=== PATIENT | male | born 1995 | race Caucasian/White ===

== ENCOUNTER 2020-05-17 15:39 | Emergency (ER) | payer OTHER, SELFPAY ==
--- NOTE | ~2020-05-17 | CT_ITS ---
EXAMINATION: CT ABDOMEN AND PELVIS WITHOUT CONTRAST CLINICAL INFORMATION: Left flank pain? Stone . COMPARISON: No pertinent prior studies are available for comparison. TECHNIQUE: Multidetector volumetric imaging was performed from the superior aspect of the liver through the pubic symphysis without contrast per renal stone protocol. Sagittal and coronal reformatted images were obtained on the technologist workstation. This CT examination was performed using dose optimization techniques as appropriate, variously including the following: *Automated exposure control *Adjustment of mA and/or kV according to patient size (this includes techniques or standardized protocols for targeted exams where dose is matched to indication/reason for exam; i.e. extremities or head) *Use of iterative reconstruction technique DLP: 461 mGy-cm. FINDINGS: LUNG BASES: The visualized lung bases are unremarkable. LIVER, GALLBLADDER, BILIARY TREE: The non-contrast liver is normal in size, shape, and attenuation. No focal hepatic lesion or biliary ductal dilatation is present. The gallbladder is unremarkable with no evidence of radiopaque gallstones, gallbladder wall thickening, or obvious pericholecystic inflammatory changes. PANCREAS: Unremarkable. SPLEEN: Unremarkable. ADRENAL GLANDS: Unremarkable. KIDNEYS AND URETERS: Mild left-sided hydronephrosis extending up to a 3 mm calculi at the left ureteropelvic junction. There were 2 additional 2 mm and 3 mm nonobstructing calculi in the lower pole collecting system of the left kidney. Contralateral right kidney is unremarkable. BLADDER: Decompressed but otherwise unremarkable GASTROINTESTINAL TRACT: Mostly decompressed but unremarkable. Normal-appearing appendix in the right lower quadrant. ABDOMINAL WALL: No significant hernia is appreciated. LYMPHOVASCULAR STRUCTURES: No lymphadenopathy. The aorta is unremarkable.. PELVIC VISCERA: Unremarkable. OSSEUS STRUCTURES: Unremarkable. CT/CT abdomen pelvis wo con IMPRESSION: Mild obstructive changes to the left kidney extending up to 3 mm calculi at the left ureteral pelvic junction with 2 additional smaller intrarenal calculi on the left.
[2020-05-17 18:11] VITALS: BP 151/97; PULSE 103; RESP 16; TEMP 37.2; O2SAT 99; BMI 22.5
--- NOTE | 2020-05-17 18:14 | ED_ITS ---
HPI - Abdominal Pain General Chief Complaint: Urogenital-Male Stated Complaint: kidney stones? Time Seen by Provider: 05/17/20 18:13 Source: patient Mode of arrival: ambulatory Limitations: no limitations History of Present Illness HPI narrative: Patient with no known significant past medical history notice gradual onset left flank pain about 1 week ago since then having pain off and on no relation to question or lesion to breathing no cough also noticed slight amount of blood MD elicited complaint: flank pain Onset (ago): week(s) (1) Location: L flank Severity: mild Quality: sharp Radiation: none Migration to: no migration Exacerbating factors: nothing Relieving factors: nothing Associated symptoms: hematuria Related Data Previous Rx's Medication Instructions Recorded ibuprofen 600 mg PO Q6H PRN #20 tab 05/17/20 tamsulosin [Flomax] 0.4 mg PO BEDTIME #10 cap 05/17/20 Allergies Allergy/AdvReac Type Severity Reaction Status Date / Time No Known Allergies Allergy Verified 05/17/20 18:18 Review of Systems Review of Systems Constitutional : No Weight loss, No Fever, No Chills ENT/Mouth : No sore throat, No Rhinorrhea Eyes: No Eye Pain, No Swelling Cardiovascular : No Chest Pain, no palpitations Respiratory : No Cough, No Sputum, no shortness of breath Gastrointestinal : no Nausea, No Vomiting, No Diarrhea, No abdominal Pain, no black stools Genitourinary : No Dysuria, No Urinary Frequency Musculoskeletal : No joint pain, No Myalgias, No Joint Swelling Skin : No Skin Lesions, No rash Neuro : No Weakness, No Numbness, No Dizziness, No Headache Psych : No Anxiety/Panic, No Depression Heme/Lymph: No Bruising, No Lymphadenopathy Endocrine : No Polyuria, No Polydipsia All other systems reviewed and are negative Physical Exam Vital Signs: Vital Signs: Last Vital Signs Temp 98.9 F 05/17/20 18:11 Pulse 103 H 05/17/20 18:11 Resp 16 05/17/20 18:11 BP 151/97 H 05/17/20 18:11 Pulse Ox 99 05/17/20 18:11 Body Mass Index 22.5 Appearance: Alert. Oriented X3. No acute distress. Eyes: Pupils equal, round and reactive to light. ENT: Pharynx normal. Neck: Normal inspection. Neck supple. CVS: Normal heart rate and rhythm. Pulses normal. Respiratory: No respiratory distress. Breath sounds normal. Abdomen: Soft and nontender. Bowel sounds are present, no mass palpable, left CVA tenderness+ Skin: Skin warm and dry. Normal skin color. Normal skin turgor. Extremities: No lower extremity edema. Neuro: Oriented X 3. No motor deficit. No sensory deficit. Course Course Course Narrative: Patient without any significant pain CT scan showed 3 mm proximal stone will discharge him home on Flomax and ibuprofen advised to follow-up with urologist MDM - Abdominal Pain Differential Diagnosis Differential diagnosis: Likely calculus of kidney Lab Data Attestation: I reviewed the patient's lab results. Labs: Lab Results 05/17/20 Range/Units 18:37 Urine Color YELLOW Urine Appearance CLEAR Urine pH 6.0 (5.0-8.0) Ur Specific [place] 1.010 (1.005-1.025) Urine Protein NEG (NEG-TRACE) MG/DL Urine Glucose (UA) NEG (NEG) MG/DL Urine Ketones NEG (NEG) MG/DL Urine Blood 3+ H (NEG) Urine Nitrite NEG (NEG) Ur Leukocyte Esterase NEG (NEG) Urine RBC 15-29 H (0) /HPF Urine WBC 0 (0-4) /HPF Ur Squamous Epith Cells TRACE /LPF Urine Bacteria 1+ /LPF Discharge Plan Discharge Clinical Impression: Kidney calculi Patient Disposition: Home, Self-Care Instructions: Kidney Stones (ED) Additional Instructions: Drink plenty of fluids take medication as prescribed Follow-up with urologist as needed Prescriptions: New tamsulosin [Flomax] 0.4 mg capsule 0.4 mg PO BEDTIME Qty: 10 RF: 0 ibuprofen 600 mg tablet 600 mg PO Q6H PRN (Reason: pain) Qty: 20 RF: 0 Referrals: Jad Winston III, MD [Physician] - 3 days Interventions: ED Discharge Assessment Last Done: 05/17/20 19:51 Discharge Date/Time: 05/17/20 19:53 [facility] Past Medical History Medical History No known health problems Social History Social History Smoked in Last 30 Days: No Use of substances other than those prescribed or required for medical reasons: No Advance Directives: No Advance Directives Information Provided: No
[2020-05-17 18:44] LABS: Appearance Urine CLEAR; Color Urine YELLOW; Glucose Urine UA NEG (NEG); Leukocyte Esterase Urine NEG (NEG); Nitrite Urine NEG (NEG); Urine Blood 3+ (NEG); Urine Ketones NEG (NEG); Urine Protein NEG (NEG-TRACE)
[2020-05-17 18:49] LABS: Bacteria Urine 1+ /LPF; Squamous Epithelial Cell Urine TRACE /LPF; WBC Urine 0 /HPF (0-4)
== END 2020-05-17 19:53 | disposition home or self-care (01) ==
PROVIDERS: Emergency Provider Internal Medicine
DX: N20.0 Calculus of kidney (principal); R10.9 Unspecified abdominal pain; Z79.899 Other long term (current) drug therapy
CPT/HCPCS: 74176; 81001; 99284

== ENCOUNTER → 2020-06-05 13:28 | Outpatient (BNVA) | payer OTHER, SELFPAY | PROVIDERS: Visit Provider Urology ==

== ENCOUNTER 2020-06-07 15:31 | Outpatient (REF) | payer OTHER, SELFPAY ==
--- NOTE | ~2020-06-07 | US_ITS ---
EXAMINATION: US RETROPERITONEAL LIMITED (RENAL ONLY) CLINICAL INFORMATION: Calculus of kidney. COMPARISON: CT abdomen and pelvis 05/17/2020 TECHNIQUE: Real-time imaging of the kidneys. FINDINGS: RIGHT KIDNEY: 11.8 x 4.6 x 6.4 cm (SAG x AP x TRV). The kidney is normal in size, contour, and echogenicity. Renal cortical thickness is normal. No calculi or focal parenchymal lesions. No hydronephrosis. LEFT KIDNEY: 11.2 x 4.7 x 5.0 cm (SAG x AP x TRV). The kidney is normal in size, contour, and echogenicity. Renal cortical thickness is normal. No focal parenchymal lesions or hydronephrosis. Lower pole 6 x 6 x 5 mm nonobstructing calculus. This could represent clustered calculi situated next to each other in the lower pole, as seen on the prior CT scan. US/US renal BI IMPRESSION: Left renal lower pole 6 x 6 x 5 mm nonobstructing calculus versus 2 clustered calculi, as seen on the recent CT scan.
== END 2020-06-07 15:32 | disposition home or self-care (01) ==
LOC: HO.HMGCX 15:31
PROVIDERS: Visit Provider Urology
DX: N20.0 Calculus of kidney (principal)
CPT/HCPCS: 76775

== ENCOUNTER → 2020-07-06 15:10 | Outpatient (BNVA) | payer OTHER, SELFPAY | PROVIDERS: Visit Provider Urology ==

== ENCOUNTER 2020-07-30 10:05 | Outpatient (REF) | payer OTHER, SELFPAY ==
[2020-07-30 11:25] LABS: MANUAL DIFF FLAG NO
[2020-07-30 11:36] LABS: Basophils Absolute Auto 0.1 X10*3/uL (0.0-0.2); Basophils Percent Auto 0.8 % (0-2); Eosinophils Absolute Auto 0.2 X10*3/uL (0.0-0.4); Eosinophils Percent Auto 2.3 % (0-4); Hematocrit 50.3 % (42-52); Hemoglobin 16.7 g/dl (14.0-18.0); Imm Gran Abs Auto 0.01 X10*3/uL (0.00-0.03); Imm Gran Pct Auto 0.2 % (0.0-0.4); Lymphocytes Absolute Auto 2.2 X10*3/uL (1.2-4.9); Lymphocytes Percent Auto 34.4 % (20-40); Mean Corpuscular HGB Conc 33.2 g/dl (31.0-36.0); Mean Corpuscular Hemoglobin 30.4 pg (27.0-33.0); Mean Corpuscular Volume 91.6 fL (80-98); Mean Platelet Volume 9.6 fL (9.4-12.4); Monocytes Absolute Auto 0.6 X10*3/uL (0.1-1.2); Monocytes Percent Auto 9.4 % (2-11); Neutrophils Absolute Auto 3.4 X10*3/uL (2.0-8.3); Neutrophils Percent Auto 52.9 % (45-73); Platelet Count 271 X10*3/uL (160-400); Red Blood Count 5.49 X10*6/uL (4.60-5.80); Red Cell Distribution Width 11.7 % (11.0-16.0); White Blood Count 6.5 X10*3/uL (4.8-10.8)
[2020-07-30 12:14] LABS: Alanine Aminotransferase 26 U/L (0-40); Alkaline Phosphatase 75 U/L (39-117); Anion Gap 15 (12-20); Aspartate Amino Transferase 16 U/L (5-37); Bilirubin Total 1.4 mg/dL (0.0-1.0); Blood Urea Nitrogen 13 mg/dL (9-16); Calcium 10.3 mg/dL (8.4-10.2); Carbon Dioxide 29 mmol/L (22-29); Chloride 101 mmol/L (96-108); Cholesterol 206 mg/dL; Estimated Glomerular Filt Rate > 60; Glucose Fasting 93 mg/dL (60-99); HDL Cholesterol 54 mg/dL; LDL Cholesterol Calculated 126 mg/dl; Potassium 4.2 mmol/L (3.3-5.1); Sodium 141 mmol/L (135-145); Total Protein 7.8 g/dL (6.5-8.0); Triglycerides 134 mg/dL
== END 2020-07-30 10:06 | disposition home or self-care (01) ==
LOC: HO.HMGCLDS 10:05
PROVIDERS: PCP Internal Medicine Medical Oncology; Visit Provider Internal Medicine Medical Oncology
DX: Z00.00 Encounter for general adult medical examination without abnormal findings (principal)
CPT/HCPCS: 36415; 80053; 80061; 85025

== ENCOUNTER 2025-02-21 15:23 | Outpatient (REF) | payer MEDICAID, SELFPAY ==
--- OUTSIDE RECORDS SUMMARY | 2023-11-03 10:00 | XMS_ITS ---
Author Organization Des Pichardo III, MD Address [address] [place] [address] Care Team Providers Care Substation Designer Name Role Phone Dr. Des Pichardo III Primary Care Provider [phone] Allergies Allergen (clinical drug ingredient) Drug/Non Drug Allergy documented on EMR Reaction Allergy Type Onset Date Status Seasonale Unknown Drug Allergy Active REASON FOR VISIT annual exam Social History Tobacco Use: Social History Observation Description Date Details (start date - stop date) Never Smoker NA - NA Sex Assigned At : Social History Observation Description Sex Assigned At Male Tobacco Use/Smoking Question Answer Notes Patient is a nonsmoker Additional Findings: Tobacco Non-User Aggressive non-smoker Alcohol Screen Question Answer Notes Did you have a drink contain ing alcohol in the past year? Yes How often did you have a dri nk containing alcohol in the past year? 2 to 4 times a month (2 points) How many drinks did you have on a typical day when you were drinking in the past year? 1 or 2 drinks (0 point) How often did you have 6 or more drinks on one occasion in the past year? Never (0 point) Points 2 Interpretation Negative Vital Signs Temperature 101.3 degrees Fahrenheit 024 Blood pressure systolic 154 mm Hg 11/03/19 24 Blood pressure diastolic 81 mm Hg 024 Heart Rate 92 /min 11/03/2023 Height 75 in 11/03/2023 Weight 184 lbs 11/03/2023 BMI 23 kg/m2 11/03/2023 Encounters Encounter Location Date Provider Diagnosis Des Pichardo III, MD [address] [place] [address] [place] [address] 11/03/2023 Des Pichardo Asperger syndrome F8 4.5 ; Social anxiety disorder F40.10 ; Tinnitus of both ears H93.13 ; Ureterolithiasis N20.1 and Generalized anxiety disorder F41.1 Assessments Encounter Date Diagnosis (ICD Code) Assessment Notes Treat ment Notes Treatment Clinical Notes 11/03/2023 Asperger syndrome (ICD-10 - F84.5) He is stable at this time no treatment is needed. Old records have been requested. 11/03/2023 Social anxiety disor kenna (ICD-10 - F40.10) He will continue on current therapy. 11/03/2023 Tinnitus of both ear s (ICD-10 - H93.13) History tinnitus is unchanged. It is present in both ears and his hearing is intact. 11/03/2023 Ureterolithiasis (ICD-10 - N20.1) There is no sign of renal colic today. 11/03/2023 Generalized anxiety disorder (ICD-10 - F41.1) He has elected to stop the fluoxetine. He will be followed carefully. He says he is eating 3 meals a day and his weight is stable. Plan Of Treatment Next Appt Details Follow Up: 1 Year, Reason: O V, Annual Exam Provider Name:Des Pichardo , 03/07/2025 03:15:00 PM, [address] [place] [address] [address], [place], [address], Provider Name:Des Pichardo , 11/07/2025 03:00:00 PM, [address] [place] [address] [address], [place], [address], Progress Notes * INDRA ClaudeJohnnyOB:[birth year] (28 yo M)Acc No.[id number]:11/03/2023 Progress Notes Patient: Edmar Paris Provider: Zach Pichardo MD :1995 A ge:28 Y S ex:Male Date:11/03/2023 [facility] [address] [phone] Subjective: * Chief Complaints: * A nnual exam * HPI: D epression Screening: He returns to the office at the age of 28, for his annual physical examination. Since his last visit he has become an uncle. He has had no kidney stones. He continues to have tinnitus intermittently. His anxiety is mild at this time. He is able to conduct all of the activities of daily life without impairment. No new problems were found on today's examination. PHQ-9 L ittle interest or pleasure in doing things?Not at all F eeling down, depressed, or hopeless N ot at all T rouble falling or staying asleep, or sleeping too much N ot at all F eeling tired or having little energy N ot at all P oor appetite or overeating N ot at all F eeling bad about yourself or that you are a failure, or have let yourself or your family down N ot at all T rouble concentrating on things, such as reading the newspaper or watching television N ot at all M oving or speaking so slowly that other people could have noticed; or the opposite, being so fidgety or restless that you have been moving around a lot more than usual N ot at all T houghts that you would be better off or of hurting yourself in some way N ot at all T otal Score 0 C OVID-19 Screening: Questions H ave you experienced fever, chills, cough, sore throat, shortness of breath, difficulty breathing, muscle aches, loss of taste or smell? N o H ave you been exposed to the virus within the last 10 days? N o H ave you travelled internationally in the last 10 days? N o H ave you been exposed to COVID-19 in the past? N o S RAEGAN Questions: SDOH Questions I n the past year have you been worried about losing your housing? N o I n the past year have you or any family members you live with been unable to get any of the following when it was really needed? Check all that apply: N one * ROS: G eneral/Constitutional: pain o nly normal aches and pains. C hills d enies.?Fatigue a dmits. F ever d enies. E NT: Decreased hearing d enies. R espiratory: Cough d enies. C ardiovascular: Chest pain with exertion d enies. D yspnea on exertion?denies. S hortness of breath d enies. G astrointestinal: Constipation o ccasional. D ecreased appetite d enies. D iarrhea d enies. H eartburn d enies. N ausea d enies. R ectal bleeding d enies. V omiting d enies. H ematology: bruising d enies. p etechiae d enies. S wollen glands n one have been noted. G enitourinary: Frequent urination d enies. M usculoskeletal: Muscle aches d enies. P ainful joints d enies. S ciatica d enies. W eakness d enies. S kin: Itching d enies. R kenyatta d enies. S kin lesion(s)?denies. N eurologic: Difficulty speaking d enies. D izziness d enies.?Headache d enies. L ow back pain d enies. P sychiatric: Depressed mood w hich is mild. * Medical History: * Surgical History: d ental extractions 2016hydrocele surgery age 7 months 1995 * Hospitalization/Major Diagno stic Procedure: D enies Past Hospitalization * Family History: F ather: alive 57 yrs, Chronic pain after an accident. M other: alive 55 yrs, Hyperthyroidism. 1 sister(s) - healthy. . His mother suffers from thyroiditis but is otherwise healthy. His father has chronic pain after an accident. His 28-year-old sister, Katty, is healthy and well. He is not aware of any inherited cancer family syndrome. * Social History: T obacco Use: T obacco Use/Smoking P atient is a n onsmoker A dditional Findings: Tobacco Non-User A ggressive non-smoker D rugs/Alcohol: D rugs H ave you used drugs other than those for medical reasons in the past 12 months? N o Alcohol Screen D id you have a drink containing alcohol in the past year? Y es H ow often did you have a drink containing alcohol in the past year? 2 to 4 times a month (2 points) H ow many drinks did you have on a typical day when you were drinking in the past year? 1 or 2 drinks (0 point) H ow often did you have 6 or more drinks on one occasion in the past year? N ever (0 point) P oints 2 I nterpretation N egative H e was born in [facility]. He is a nonsmoker and unemployed. 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 He has no experience. He is not a Yarsani. * Medications: N one * Allergies: S easonaleno[Allergies Verified] Objective: * Vitals: H t: 75, Wt: 184, BMI:23, BP: 154/81, HR: 92, Temp: 101.3, Wt-k.46. * Examination: G eneral Examination: GENERAL APPEARANCE: p leasant, well nourished, well developed, in no acute distress, calm and relaxed , man. HEAD: a traumatic, normocephalic. EYES: e [place], perrla, anicteric, conjugate. EARS: n ormal. NOSE: s eptum intact. ORAL CAVITY: n ormal, unremarkable. NECK/THYROID: n o jugular venous distention, no carotid bruit, thyroid normal. LYMPH NODES: n o enlarged lymph nodes,spleen normal. SKIN: n o suspicious lesions, anicteric. HEART: n o clicks, gallops, murmurs, or rubs, regular rhythm, S1, S2 normal, no s3, or vascular bruits. LUNGS: c lear to auscultation . BREASTS: no masses palpable bilaterally. ABDOMEN: b owel sounds normal, no ascites, no organomegaly, no mass. RECTAL EXAM: n ot examined. MUSCULOSKELETAL: e xtremities unremarkable, no clubbing, cyanosis or edema. PERIPHERAL PULSES: n ormal. NEUROLOGIC: a lert and oriented, cranial nerves 2-12 grossly intact, deep tendon reflexes 2+ symmetrical, motor strength normal upper and lower extremities, sensory exam intact. PSYCH: a lert, oriented , anxious appearing. ? Assessment: * Assessment: 1. A sperger syndrome - F84.5 (Primary), He is stable at this time no treatment is needed. Old records have been requested. 2 . S ocial anxiety disorder - F40.10, He will continue on current therapy. 3 . T innitus of both ears - H93.13, History tinnitus is unchanged. It is present in both ears and his hearing is intact. 4 . U reterolithiasis - N20.1, There is no sign of renal colic today. 5 . G eneralized anxiety disorder - F41.1, He has elected to stop the fluoxetine. He will be followed carefully. He says he is eating 3 meals a day and his weight is stable. Plan: * Treatment: * Procedure Codes: * Follow Up: 1 Year (Reason: OV, Annual Exam) * Images: * Sign off status: Completed true * Provider: Zach Pichardo MD Date: 0 11/03/2023 Generated for Wilfredo godinez/Lauren/Renny on: 1 04/23/2024 05:02 PM EST History and Physical Notes * HPI (History of Present Illness) Category Sub-Category Detail Notes Depression Screening PHQ-9 Little inte rest or pleasure in doing things: Not at all Feeling down, depressed, or hopeless: No t at all Trouble falling or staying asleep, or sl eeping too much: Not at all Feeling tired or having little energy: N ot at all Poor appetite or overeating: Not at all Feeling bad about yourself o r that you are a failure, or have let yourself or your family down: Not at all Trouble concentrating on thi ngs, such as reading the newspaper or watching television: Not at all Moving or speaking so slowly that other people could have noticed; or the opposite, being so fidgety or restless that you have been moving around a lot more than usual: Not at all Thoughts that you would be b cindi off or of hurting yourself in some way: Not at all Total Score: 0 COVID-19 Screening Questions Have you had any new onset fever, chills, cough, congestion, sore throat, shortness of breath, muscle aches?: No Have you been exposed to the virus withi n the last 10 days?: No Have you travelled internationally in last 10 days?: No Have you been exposed to COVID-19 in the past?: No SDOH Questions SDOH Questions In the past year have you been worried about losing your housing?: No In the past year have you or any family members you live with been unable to get any of the following when it was really needed? Check all that apply:: None Examination Category Sub-Category Detail Notes General Examination GENERAL APPEARANCE: pleasant , well nourished, well developed, in no acute distress, calm and relaxed , man HEAD: atraumatic, normocep halic EYES: eomi, perrla, anicte jonatan, conjugate EARS: normal NOSE: septum intact NECK/THYROID: no jugular venous di stention, no carotid bruit, thyroid normal HEART: no clicks, gallops, murmurs, or rubs, regular rhythm, S1, S2 normal, no s3, or vascular bruits LUNGS: clear to auscultatio n ABDOMEN: bowel sounds normal, no ascites, no organomegaly, no mass NEUROLOGIC: alert and oriented, cranial nerves 2-12 grossly intact, deep tendon reflexes 2+ symmetrical, motor strength normal upper and lower extremities, sensory exam intact SKIN: no suspicious lesion s, anicteric PERIPHERAL PULSES: normal BREASTS: no masses palpable b ilaterally MUSCULOSKELETAL: extremities unremark able, no clubbing, cyanosis or edema LYMPH NODES: no enlarged lymph no tee,spleen normal RECTAL EXAM: not examined PSYCH: alert, oriented , an xious appearing ORAL CAVITY: normal, unremarkable
--- OUTSIDE RECORDS SUMMARY | 2024-11-04 10:00 | XMS_ITS ---
Author Organization Des Pichardo III, MD Address [address] [place] [address] Care Team Providers Care General Maintenance Helper Name Role Phone Dr. Des Pichardo III Primary Care Provider [phone] Allergies Allergen (clinical drug ingredient) Drug/Non Drug Allergy documented on EMR Reaction Allergy Type Onset Date Status No Known Food Allergy Unknown Drug Allergy Active Seasonale Unknown Drug Allergy Active REASON FOR VISIT annual exam Social History Tobacco Use: Social History Observation Description Date Details (start date - stop date) Never Smoker NA - NA Sex Assigned At : Social History Observation Description Sex Assigned At Male Tobacco Control (Standard) Question Answer Notes Tobacco use: Nonsmoker Additional Findings: Tobacco non-user Aggressive nonsmoker AUDIT-C (Standard) Question Answer Notes Did you have a drink contain ing alcohol in the past year? Yes How often did you have six o r more drinks on one occasion in the past year? 2 to 3 times per week (3 points) How many drinks did you have on a typical day when you were drinking in the past year? 1 or 2 drinks (0 point) How often did you have a dri nk containing alcohol in the past year? Never (0 point) Points 3 Interpretation Negative Vital Signs Temperature 98.8 degrees Fahrenheit 11/05/19 25 Blood pressure systolic 110 mm Hg 11/05/19 25 Blood pressure diastolic 64 mm Hg 025 Heart Rate 89 /min 11/04/2024 Height 75 in 11/04/2024 Weight 178 lbs 11/04/2024 BMI 22.25 kg/m2 11/04/2024 Encounters Encounter Location Date Provider Diagnosis Des Pichardo III, MD [address] [place] [address] [place] [address] 11/04/2024 Des Pichardo Asperger syndrome F8 4.5 ; Social anxiety disorder F40.10 ; Tinnitus of both ears H93.13 ; Ureterolithiasis N20.1 and Generalized anxiety disorder F41.1 Assessments Encounter Date Diagnosis (ICD Code) Assessment Notes Treat ment Notes Treatment Clinical Notes 11/04/2024 Asperger syndrome (ICD-10 - F84.5) He is stable at this time no treatment is needed. Old records have been requested. 11/04/2024 Social anxiety disor kenna (ICD-10 - F40.10) He will continue on current therapy. 11/04/2024 Tinnitus of both ear s (ICD-10 - H93.13) History tinnitus is unchanged. It is present in both ears and his hearing is intact. 11/04/2024 Ureterolithiasis (ICD-10 - N20.1) There is no sign of renal colic today. 11/04/2024 Generalized anxiety disorder (ICD-10 - F41.1) He has elected to stop the fluoxetine. He will be followed carefully. He says he is eating 3 meals a day and his weight is stable. Plan Of Treatment Pending Test Test Name Order Date PROFILE, FASTING (COMPREHENSIVE METABOLI C) 11/04/2024 CBC w DIFF 11/04/2024 Lipid Panel 11/04/2024 Next Appt Details Follow Up: 1 Year, Reason: A nnual Exam Provider Name:Des Pichardo , 03/07/2025 03:15:00 PM, [address] [place] [address] [address], [place], [address], Provider Name:Des Pichardo , 11/07/2025 03:00:00 PM, [address] [place] [address] [place], [address], Progress Notes * Alcides BURRELL:[birth year] (29 yo M)Acc No.[id number]:11/04/2024 Progress Notes Patient: Edmar FERNANDEZ Provider: Zach Pichardo MD :1995 A ge:29 Y S ex:Male Date:11/04/2024 Address: [address], [place], [id number] Subjective: * Chief Complaints: * A nnual exam * HPI: D epression Screening: He returns to the office at the age of 29 for his annual physical examination. He continues to have tinnitus but has had no kidney stones. He remains anxious in social situations but is functioning well. He is able to complete all of the activities of his daily life. He has no medical complaints today. He has been compliant with all of his treatments. PHQ-9 L ittle interest or pleasure in doing things?Not at all F eeling down, depressed, or hopeless N ot at all T rouble falling or staying asleep, or sleeping too much N ot at all F eeling tired or having little energy S everal days P oor appetite or overeating N ot [...] N ot at all T otal Score 1 I nterpretation M inimal Depression C OVID-19 Screening: Questions H ave you had any new onset fever, chills, cough, congestion, sore throat, shortness of breath, muscle aches? N o S RAEGAN Questions: SDOH Questions [...] ever d enies. E NT: Decreased hearing I ntermittent tinnitus. R espiratory: Cough d enies. C ardiovascular: Chest pain with exertion d enies. D yspnea on exertion?denies. S hortness of breath d enies. G astrointestinal: Constipation d enies. D ecreased appetite d enies.?Diarrhea d enies. H eartburn d enies. N ausea d enies. R ectal bleeding?denies. V omiting d enies. H ematology: bruising [...] pain d enies. P sychiatric: Depressed mood d enies. * Medical History: * Surgical History: d [...] aware of any inherited cancer family syndrome. A great uncle has bladder cancer. * Social History: T obacco Use: T obacco Control (Standard) T obacco use: N onsmoker A dditional Findings: Tobacco non-user A ggressive nonsmoker D rugs/Alcohol: D rugs H ave you used drugs other than those for medical reasons in the past 12 months? N o D rug/Alcohol: A ANA-C (Standard) D id you have a drink containing alcohol in the past year? Y es H ow often did you have six or more drinks on one occasion in the past year? 2 to 3 times per week (3 points) H ow many drinks did you have on a typical day when you were drinking in the past year? 1 or 2 drinks (0 point) H ow often did you have a drink containing alcohol in the past year? N ever (0 point) P oints 3 I nterpretation N egative H lavell was born in [facility] at [facility]. He is a nonsmoker and unemployed. 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 He has no experience. He is not a Yarsani. * Medications: N one * Allergies: S easonaleNo Known Food Allergyno[Allergies Verified] Objective: * Vitals: H t: 75, Wt: 178, BMI:22.25, BP: 110/64, HR: 89, Temp: 98.8, Wt-k.74. * Examination: G eneral Examination: GENERAL APPEARANCE: p leasant, well nourished, well developed, in no acute distress, calm and relaxed: man. HEAD: a traumatic, normocephalic. EYES: e [...] extremities, sensory exam intact. PSYCH: a lert, oriented: anxious appearing: speech clear: thought process logical, goal directed: mood/affect full range: good eye contact: cooperative with exam: cognitive function intact. Assessment: * Assessment: 1. A sperger syndrome - F84.5 (Primary) N otes :He is stable at this time no treatment is needed. Old records have been requested. 2 . S ocial anxiety disorder - F40.10 N otes :He will continue on current therapy. 3 . T innitus of both ears - H93.13 N otes :History tinnitus is unchanged. It is present in both ears and his hearing is intact. 4 . U reterolithiasis - N20.1 N otes :There is no sign of renal colic today. 5 . G eneralized anxiety disorder - F41.1 N otes :He has elected to stop the fluoxetine. He will be followed carefully. He says he is eating 3 meals a day and his weight is stable. Plan: * Treatment: * Labs: * L ab: PROFILE, FASTING (COMPREHENSIVE METABOLIC) L ab: CBC w DIFF L ab: Lipid Panel * Procedure Codes: * Follow Up: 1 Year (Reason: Annual Exam) * Images: * Sign off status: Completed true * Provider: Zach Pichardo MD Date: 0 11/04/2024 Generated for Wilfredo godinez/Lauren/Ginetteransmitting on: 1 04/23/2024 05:03 PM EST History and Physical Notes * HPI (History of Present Illness) Category Sub-Category Detail Notes Depression Screening PHQ-9 Little inte rest or pleasure in doing things: Not at all Feeling down, depressed, or hopeless: No t at all Trouble falling or staying asleep, or sl eeping too much: Not at all Feeling tired or having little energy: S everal days Poor appetite or overeating: Not at all [...] some way: Not at all Total Score: 1 Interpretation: Minimal Depression COVID-19 Screening Questions Have you had any new onset fever, chills, cough, congestion, sore throat, shortness of breath, muscle aches?: No SDOH Questions SDOH Questions In the [...] developed, in no acute distress, calm and relaxed: man HEAD: atraumatic, normocep halic EYES: eomi, [...] normal RECTAL EXAM: not examined PSYCH: alert, oriented: anx ious appearing: speech clear: thought process logical, goal directed: mood/affect full range: good eye contact: cooperative with exam: cognitive function intact ORAL CAVITY: normal, unremarkable
--- OUTSIDE RECORDS SUMMARY | 2025-02-21 09:45 | XMS_ITS ---
Author Organization Des Pichardo III, MD Address [address] [place] [address] Care Team Providers Care Information Assurance Officer Name Role Phone Dr. Des Pichardo III Primary Care Provider Allergies Allergen (clinical drug ingredient) Drug/Non Drug Allergy documented on EMR Reaction Allergy Type Onset Date Status No Known Food Allergy Unknown Drug Allergy Active Seasonale Unknown Drug Allergy Active REASON FOR VISIT Anxiety x 1 week, Unable to sleep at night Social History Tobacco Use: Social History Observation Description Date Details (start date - stop date) Never Smoker NA - NA Sex Assigned At : Social History Observation Description Sex Assigned At Male Tobacco Control (Standard) Question Answer Notes Tobacco use: Nonsmoker Additional Findings: Tobacco non-user Aggressive nonsmoker Vital Signs Temperature 97.7 degrees Fahrenheit 02/22/20 25 Heart Rate 100 /min 02/21/2025 Height 75 in 02/21/2025 Weight 180 lbs 02/21/2025 BMI 22.5 kg/m2 02/21/2025 Encounters Encounter Location Date Provider Diagnosis Des Pichardo III, MD [address] [place] [address] [place] [address] 02/21/2025 Des Pichardo Generalized anxiety disorder F41.1 ; Frequent urination R35.0 ; Asperger syndrome F84.5 and Social anxiety disorder F40.10 Assessments Encounter Date Diagnosis (ICD Code) Assessment Notes Treat ment Notes Treatment Clinical Notes 02/21/2025 Generalized anxiety disorder (ICD-10 - F41.1) 02/21/2025 Frequent urination (ICD-10 - R35.0) 02/21/2025 Asperger syndrome (ICD-10 - F84.5) 02/21/2025 Social anxiety disorder (ICD-10 - F40.10) Plan Of Treatment Pending Test Test Name Order Date PROFILE, RANDOM (COMPREHENSIVE METABOLIC ) 02/21/2025 CBC w DIFF 02/21/2025 SED RATE (ESR) 02/21/2025 URINALYSIS (UA) 02/21/2025 Next Appt Details Follow Up: 2 Weeks, Reason: OV Provider Name:Des Monte Marino , 03/07/2025 03:15:00 PM, [address] [place] [address] [address], [place], [address], Provider Name:Des Monte Marino , 11/07/2025 03:00:00 PM, [address] [place] [address] [address], [place], [address], Progress Notes * Claude BURRELLJohnnyOB:[birth year] (29 yo M)Acc No.[id number]:02/21/2025 Progress Notes Patient: Edmar FERNANDEZ Provider: Zach Pichardo MD :1995 A ge:29 Y S ex:Male Date:02/21/2025 Address: [address], [id number] Subjective: * Chief Complaints: * 1 . Anxiety x 1 week. 2. Unable to sleep at night. * HPI: C OVID-19 Screening: after a democrat 1.5 weeks ago feet were swollen and peed every 2 hours o2 sat 99 p112,. Questions H ave you had any new onset fever, chills, cough, congestion, sore throat, shortness of breath, muscle aches? N o * ROS: G eneral/Constitutional: pain o nly [...] Depressed mood d enies. * Medical History: S ocial anxiety, Asperger's syndrome, Intermittent tinnitus, Hydrocele surgery age 7 months, Otitis, ureterolithiasis with renal colic May 2020. * Surgical History: d ental extractions 2015, hydrocele surgery age 7 months 1995. * Hospitalization/Major Diagno stic Procedure: D enies Past Hospitalization. * Family History: F ather: alive 57 [...] dditional Findings: Tobacco non-user A ggressive nonsmoker Harsha monte was born in [facility] at [facility]. He is a nonsmoker and unemployed. In the past he worked for a [employer] company. He has no experience. He is not a Jewish. * Medications: N one * Allergies: S easonale, No Known Food Allergy. Objective: * Vitals: H t: 75, Wt: 180, BMI:22.5, HR: 100, Temp: 97.7, Wt-k.65. * Examination: G eneral Examination: GENERAL APPEARANCE: p leasant, well nourished, well developed, in no acute distress, calm and relaxed. HEAD: a traumatic, normocephalic. EYES: e [place], [...] extremities, sensory exam intact. PSYCH: a lert, oriented. Assessment: * Assessment: 1. G eneralized anxiety disorder - F41.1 2 . F requent urination - R35.0? 3. A sperger syndrome - F84.5 4 . S ocial anxiety disorder - F40.10 Plan: * Treatment: 2. F requent urination L AB: PROFILE, RANDOM (COMPREHENSIVE METABOLIC) L AB: CBC w DIFF L AB: SED RATE (ESR) L AB: URINALYSIS (UA) 3. A sperger syndrome L AB: PROFILE, RANDOM (COMPREHENSIVE METABOLIC) L AB: CBC w DIFF L AB: SED RATE (ESR) L AB: URINALYSIS (UA) 4. S ocial anxiety disorder L AB: PROFILE, RANDOM (COMPREHENSIVE METABOLIC) L AB: CBC w DIFF L AB: SED RATE (ESR) L AB: URINALYSIS (UA) * Follow Up: 2 Weeks (Reason: OV) * Images: * The named appointment provid er may or may not be the originator of this progress note, and it is not deemed complete until electronically signed by the appointment provider. Sign off status: Pending * Provider: Zach Pichardo MD Date: 04/23/2024 Generated for Wilfredo godinez/Lauren/Renny on: 04/23/2024 05:02 PM EST History and Physical Notes * HPI (History of Present Illness) Category Sub-Category Detail Notes COVID-19 Screening Questions Have you had any new onset fever, chills, cough, congestion, sore throat, shortness of breath, muscle aches?: No Examination Category Sub-Category Detail Notes General Examination GENERAL APPEARANCE: pleasant , well nourished, well developed, in no acute distress, calm and relaxed HEAD: atraumatic, normocep halic EYES: eomi, perrla, [...] RECTAL EXAM: not examined PSYCH: alert, oriented ORAL CAVITY: normal, unremarkable
[2025-02-21 15:36] LABS: MANUAL DIFF FLAG NO
[2025-02-21 16:24] LABS: Hematocrit 49.4 % (42.0-52.0); Hemoglobin 16.4 g/dl (14.0-18.0); Imm Gran Abs Auto 0.03 X10*3/uL (0.00-0.03); Imm Gran Pct Auto 0.4 % (0.0-0.4); Lymphocytes Absolute Auto 1.8 X10*3/uL (1.2-4.9); Mean Corpuscular HGB Conc 33.2 g/dl (31.0-36.0); Mean Corpuscular Hemoglobin 30.7 pg (27.0-33.0); Mean Corpuscular Volume 92.5 fL (80.0-98.0); NRBC Abs Auto 0.000 X10*3/uL (0.0-0.012); NRBC Pct Auto 0.0 /100WBC (0.0-0.2); Platelet Count 293 X10*3/uL (160-400); Red Blood Count 5.34 X10*6/uL (4.60-5.80); White Blood Count 8.0 X10*3/uL (4.8-10.8)
[2025-02-21 16:47] LABS: Appearance Urine Clear; Glucose Urine UA Negative (Negative); PH 7.5 (5.0-9.0); Specific Gravity - Urine 1.010 (1.005-1.025)
--- OUTSIDE RECORDS SUMMARY | 2025-02-21 17:03 | XMS_ITS | Encounter Summary ---
Author Organization [facility] Address [address] [place], [place] [id number] Phone Care Team Providers Care Operations Vice President Name Role Phone Unavailable Primary Care Provider Unavailabl e Encounter Details Date Type Department Care Team (Late st Contact Info) Description 06/03/2011 Documentation [facility] [place] Family Medicine [address] [place] [address] Family Medicine, Physician [facility] [place] [address] Social History Tobacco Use Types Packs/Day Years Used Date Smoking Tobacco: Never Assessed Sex and Gender Information Value Date Recorded Sex Assigned at Not on file Legal Sex Male 5:14 PM EDT Gender Identity Not on file Sexual Orientation Not on file documented as of this encounter Plan of Treatment Not on file documented as of this encounter Visit Diagnoses Not on filedocumented in this encounter
--- OUTSIDE RECORDS SUMMARY | 2025-02-21 17:03 | XMS_ITS | Encounter Summary ---
Author Organization [facility] Address [address] [place], [place] [address] Phone Care Team Providers Care Joinery Patternmaker Name Role Phone Unavailable Primary Care Provider Unavailabl e Encounter Details Date Type Department Care Team (Late st Contact Info) Description 06/03/2011 Documentation [facility] [place] Family Medicine [address] [place] [address] Family Medicine, Physician [facility] [place] [address] Social History Tobacco Use Types [...]
--- OUTSIDE RECORDS SUMMARY | 2025-02-21 17:03 | XMS_ITS | Clinical Summary ---
Author Organization [facility] Address [address] [place] [id number] Phone Care Team Providers Care Roller Maker Name Role Phone Unavailable Primary Care Provider Unavailabl e Immunizations Immunization Administration Dates Next Due DTP 10/20/2000, 8,04/30/1996, 996,1995 HPV, Quadrivalent 06/03/2011,01/28/2011,11/27/19 11 Hep A, ped/adol 02/21/2014,11/26/2010 Hep B, ped/adol 01/25/1997,04/20/1996,1995 Hib (PRP-T) 01/25/1997, 7,02/17/1996, 996 IPV 10/20/2000, 7,02/17/1996, 996 MMR 10/16/1999,10/18/1996 Meningococcal Conj (Menactra) MCV4P 02/21/2015,0 11/05/2007 Tdap 11/05/2007 Family History Relation Name Status Comments Father Alive Father: alive a nd well Mother Alive Mother: Hay fev er Other No family histo ry of Dental caries, No family history of Heart disease, No family history of Sudden /[place] under age 55, No family history of Thrombophilia, No family history of CVA (Stroke) Paternal Grandfather Paterna l grandfather: hay fever, Asthma Sister Alive Sister: Alive a nd well Social History Tobacco Use Types Packs/Day Years Used Date Smoking Tobacco: Never Comments:Never smoker Sex and Gender Information Value Date Recorded Sex Assigned at Not on file Legal Sex Male 5:14 PM EDT Gender Identity Not on file Sexual Orientation Not on file Last Filed Vital Signs Vital Sign Reading Time Taken Comments Blood Pressure 142/74 02/25/2016 12:00 AM EST Pulse 112 02/25/2016 12:00 AM EST Temperature 37.1 C (98.8 F) 02/25/2016 12:00 AM EST Respiratory Rate - - Oxygen Saturation - - Inhaled Oxygen Concentration - - Weight 70 kg (154 lb 6.4 oz) 02/25/2016 12:00 AM EST Height 186.7 cm (6' 1.5 ) 02/25/2016 12:00 AM ES T Body Mass Index 20.09 02/25/2016 12:00 AM EST Plan of Treatment Health Maintenance Due Date Last Done Comments Varicella Vaccines (1 of 2 - 13+ 2-dose series) 10/10/2008 DTaP,Tdap,and Td Vaccines (7 - Td or Tdap) 11/04/2017 11/05/2007, 10/20/2000, 04/24/1997, Additional history exists Influenza Vaccines (#1) 2024 COVID-19 Vaccine ( season) 2024 HIB Vaccines Completed 01/25/1997, 11/1996, 02/17/1996, Additional history exists Hepatitis B Vaccines Completed 01/25/1997, 04/20/1996, 1995 MMR Vaccines Completed 10/16/1999, 10/18/1996 IPV Vaccines Completed 10/20/2000, 11/1996, 02/17/1996, Additional history exists HPV Vaccines Completed 06/03/2011, 01/11, 11/26/2010 Hepatitis A Vaccines Completed 02/21/2014, 11/27/19 11 Meningococcal Vaccine Aged Out 02/21/2015, 008 No longer eligible based on patient's age to complete this topic Men B Vaccine Aged Out No longer elig ible based on patient's age to complete this topic Pneumococcal Vaccine Aged Out No long er eligible based on patient's age to complete this topic
--- OUTSIDE RECORDS SUMMARY | 2025-02-21 17:03 | XMS_ITS | Patient Health Record ---
Author Organization Des Pichardo III, MD Address [address] [place] [address] Care Team Providers Care Masonry Contractor Name Role Phone Dr. Des Pichardo III Primary Care Provider Allergies Allergen (clinical drug ingredient) Drug/Non Drug Allergy documented on EMR Reaction Allergy Type Onset Date Status No Known Food Allergy Unknown Drug Allergy Active Seasonale Unknown Drug Allergy Active Results Component Value Reference Range Notes Complete Blood Count Auto Di ff (Not yet reviewed by provider) Interpretation: Performing Lab:[facility], [address] [place] [id number] Notes/Report: White Blood Count 8.0 4.8-10.8 X10*3/uL Red Blood Count 5.34 4.60-5.80 X10*6/uL Hemoglobin 16.4 14.0-18.0 g/dl Hematocrit 49.4 42.0-52.0 % Mean Corpuscular Volume 92.5 80.0-98.0 fL Mean Corpuscular Hemoglobin 30.7 27.0-33.0 pg Mean Corpuscular HGB Conc 33.2 31.0-36.0 g/dl Red Cell Distribution Width 11.7 11.0-16.0 % Platelet Count 293 160-400 X10*3/uL Mean Platelet Volume 9.4 9.4-12.4 fL Neutrophils Percent Auto 66.7 45-73 % Imm Gran Pct Auto 0.4 0.0-0.4 % Lymphocytes Percent Auto 22.0 20-40 % Monocytes Percent Auto 6.0 2-11 % Eosinophils Percent Auto 4.0 0-4 % Basophils Percent Auto 0.9 0-2 % NRBC Pct Auto 0.0 0.0-0.2 /100WBC Neutrophils Absolute Auto 5.3 2.0-8.3 x10*3/u L Imm Gran Abs Auto 0.03 0.00-0.03 X10*3/uL Lymphocytes Absolute Auto 1.8 1.2-4.9 X10*3/u L Monocytes Absolute Auto 0.5 0.1-1.2 X10*3/uL Eosinophils Absolute Auto 0.3 0.0-0.4 X10*3/u L Basophils Absolute Auto 0.1 0.0-0.2 X10*3/uL NRBC Abs Auto 0.000 0.0-0.012 X10*3/uL Urinalysis (Not yet reviewe d by provider) Interpretation: Performing Lab:[address] [phone] Notes/Report: Color Urine Yellow Appearance Urine Clear PH 7.5 5.0-9.0 Glucose Urine UA Negative Negative mg/dL Urine Blood Negative Negative Specific Glady - Urine 1.010 1.005-1.025 Urine Protein Negative Neg-Trace mg/dL Urine Ketones Negative Negative mg/dL Nitrite Urine Negative Negative Leukocyte Esterase Urine Negative Negative Reason For Referral No Information Immunizations Vaccine Route Administration Date Status Comme nts DTaP Unknown 1995 Administered DTaP Unknown 02/17/1996 Administered DTaP Unknown 04/30/1996 Administered DTaP Unknown 04/24/1997 Administered HPV Unknown 11/26/2010 Administered DTaP Unknown 10/20/2000 Administered HPV Unknown 01/28/2011 Administered HPV Unknown 06/03/2011 Administered Hep A Unknown 11/26/2010 Administered Hep A Unknown 02/21/2014 Administered Hepatitis B Unknown 1995 Administered Hepatitis B Unknown 04/20/1996 Administered Hepatitis B Unknown 01/25/1997 Administered Hib Unknown 1995 Administered Hib Unknown 02/17/1996 Administered Hib Unknown 04/20/1996 Administered Hib Unknown 01/25/1997 Administered MMR Unknown 10/18/1996 Administered MMR Unknown 10/16/1999 Administered Meningococcal (MCV4) Unknown 11/05/2007 Administered Meningococcal (MCV4) Unknown 02/21/2015 Administered IPV Unknown 1995 Administered IPV Unknown 02/17/1996 Administered IPV Unknown 04/20/1996 Administered IPV Unknown 10/20/2000 Administered Tdap Unknown 11/05/2007 Administered Menactra (MCV4) Unknown 02/21/2015 Administered Social History Tobacco Use: Social History Observation [...] Never (0 point) Points 3 Interpretation Negative Problems Problem Type SNOMED Code ICD Code Onset Dates Problem Status W/U Status Risk Notes Problem 33935064 Generalized anxiety disorder (F41.1) Active confirmed He has elected to stop the fluoxetine. He will be followed carefully. He says he is eating 3 meals a day and his weight is stable. Problem 37392804 Ureterolithiasis (N20.1) Active confirmed There is no sign of renal colic today. Problem 32655544 Asperger syndrom e (F84.5) Active confirmed He is stable at this time no treatment is needed. Old records have been requested. Problem [id number] Tinnitus of both ears (H93.13) Active confirmed History tinnitus is unchanged. It is present in both ears and his hearing is intact. Problem 57097243 Social anxiety disorder (F40.10) Active confirmed He will continue on current therapy. Vital Signs Heart Rate 100 /min 02/21/2025 Temperature 97.7 degrees Fahrenheit 02/21/2025 Blood pressure diastolic 64 mm Hg 11/04/2024 Height 75 in 02/21/2025 Blood pressure systolic 110 mm Hg 11/04/2024 Weight 180 lbs 02/21/2025 BMI 22.5 kg/m2 02/21/2025 Encounters Encounter Location Date Provider Diagnosis Des Pichardo III, MD [address] [place] [address] [facility] [place] [address] 11/04/2024 Des Pichardo Asperger syndrome F8 4.5 ; Social anxiety disorder F40.10 ; Tinnitus of both ears H93.13 ; Ureterolithiasis N20.1 and Generalized anxiety disorder F41.1 Des Pichardo III, MD [address] [place] [address] [place] [address] 02/21/2025 Des Pichardo Generalized anxiety disorder F41.1 ; Frequent urination R35.0 ; Asperger syndrome F84.5 and Social anxiety disorder F40.10 Assessments Encounter Date Diagnosis (ICD Code) Assessment Notes Treat ment Notes Treatment Clinical Notes 11/04/2024 Asperger syndrome (ICD-10 - F84.5) He is stable at this time no treatment is needed. Old records have been requested. 11/04/2024 Social anxiety disor eknna (ICD-10 - F40.10) He will continue on current therapy. 02/21/2025 Generalized anxiety disorder (ICD-10 - F41.1) 11/04/2024 Tinnitus of both ear s (ICD-10 - H93.13) History tinnitus is unchanged. It is present in both ears and his hearing is intact. 02/21/2025 Frequent urination (ICD-10 - R35.0) 11/04/2024 Ureterolithiasis (ICD-10 - N20.1) There is no sign of renal colic today. 02/21/2025 Asperger syndrome (ICD-10 - F84.5) 11/04/2024 Generalized anxiety disorder (ICD-10 - F41.1) He has elected to stop the fluoxetine. He will be followed carefully. He says he is eating 3 meals a day and his weight is stable. 02/21/2025 Social anxiety disor kenna (ICD-10 - F40.10) Plan Of Treatment Pending Test Test Name Order Date URINE DIP STICK 07/22/2021 PROFILE, FASTING (COMPREHENSIVE METABOLI C) 11/04/2024 PROFILE, RANDOM (COMPREHENSIVE METABOLIC ) 02/21/2025 CBC w DIFF 02/21/2025 CBC w DIFF 11/04/2024 SED RATE (ESR) 02/21/2025 URINALYSIS (UA) 02/21/2025 Complete Blood Count Auto Diff Urinalysis 02/21/2025 Lipid Panel 11/04/2024 Next Appt Details Provider Name:Des Luongne , 03/07/2025 03:15:00 PM, [address] [facility], [place], [address], Provider Name:Des Pichardo , 11/07/2025 03:00:00 PM, [address] [place] [address] [address], [place], [address], Insurance Providers Payer Name Payer Address Payer Phone Subscriber Number Group Number Insured Name Patient Relationship to Insured Coverage Start Date Coverage End Date MED[place] [address] [place] [id number] Edmar Zapien Self - patient is the insured Medical (General) History Medical History History ICD Code social anxiety Asperger's syndrome intermittent tinnitus hydrocele surgery age 7 months otitis ureterolithiasis with renal colic 2020 Surgical History Surgery Date(Month/Year) hydrocele surgery age 7 months 1995 dental extractions 2015
--- OUTSIDE RECORDS SUMMARY | 2025-02-21 17:03 | XMS_ITS | Encounter Summary ---
Author Organization [facility] Address [address] [place] [phone] Phone Care Team Providers Care Transitions Rn Care Coordinator Name Role Phone Unavailable Primary Care Provider Unavailabl e Encounter Details Date Type Department Care Team (Late st Contact Info) Description 11/27/2016 Conversion Encounter [facility] - [address] [address] Social History Tobacco Use Types Packs/Day Years [...]
--- OUTSIDE RECORDS SUMMARY | 2025-02-21 17:03 | XMS_ITS | Encounter Summary ---
Author Organization [facility] Address [address] [place], [place] [address] Phone Care Team Providers Care Physical Meteorologist Name Role Phone Unavailable Primary Care Provider Unavailabl e Encounter Details Date Type Department Care Team (Late st Contact Info) Description 11/27/2010 [place] [facility] [place] [address] [place] [address] Family Medicine, Physician [facility] [place] [address] Social History Tobacco Use Types [...]
--- OUTSIDE RECORDS SUMMARY | 2025-02-21 17:03 | XMS_ITS | Encounter Summary ---
Author Organization [facility] Address [address] [place], [place] [address] Phone Care Team Providers Care Leasing Representative Name Role Phone Unavailable Primary Care Provider Unavailabl e Encounter Details Date Type Department Care Team (Late st Contact Info) Description 02/22/2014 [place]ation [facility] [place] [address] [place] [address] Family Medicine, Physician [facility] [place] [address] Social History Tobacco Use Types [...]
--- OUTSIDE RECORDS SUMMARY | 2025-02-21 17:03 | XMS_ITS | Encounter Summary ---
Author Organization [facility] Address [address] [place], [place] [phone] Phone Care Team Providers Care Top Precipitator Operator Helper Name Role Phone Unavailable Primary Care Provider Unavailabl e Encounter Details Date Type Department Care Team (Late st Contact Info) Description 02/22/2015 Documentation [facility] [place] [address] [place] [address] Family Medicine, Physician [facility] [place] [address] Social History Tobacco Use Types [...]
--- OUTSIDE RECORDS SUMMARY | 2025-02-21 17:03 | XMS_ITS | Encounter Summary ---
Author Organization [facility] Address [address] [place], [place] [address] Phone Care Team Providers Care Drier Take Off Tender Name Role Phone Unavailable Primary Care Provider Unavailabl e Encounter Details Date Type Department Care Team (Late st Contact Info) Description 02/22/2014 Documentation [facility] [place] [address] [place] [address] Family Medicine, Physician [facility] [place] [address] Social History Tobacco Use Types [...]
--- OUTSIDE RECORDS SUMMARY | 2025-02-21 17:03 | XMS_ITS | Encounter Summary ---
Author Organization [facility] Address [address] [place], [place] [address] Phone Care Team Providers Care Production Miner Name Role Phone Unavailable Primary Care Provider Unavailabl e Encounter Details Date Type Department Care Team (Late st Contact Info) Description 01/07/2012 Documentation [facility] [place] Family Medicine [address] [place] [address] Family Medicine, Physician [facility] [place] [address] Social History Tobacco Use Types [...]
--- OUTSIDE RECORDS SUMMARY | 2025-02-21 17:03 | XMS_ITS | Encounter Summary ---
Author Organization [facility] Address [address] [place], [place] [address] Phone Care Team Providers Care Drum Filler Name Role Phone Unavailable Primary Care Provider Unavailabl e Encounter Details Date Type Department Care Team (Late st Contact Info) Description 11/27/2010 Documentation [facility] [place] [address] [place] [address] Family Medicine, Physician [facility] [place] [address] Social History Tobacco Use Types [...]
--- OUTSIDE RECORDS SUMMARY | 2025-02-21 17:03 | XMS_ITS | Encounter Summary ---
Author Organization [facility] Address [address] [place], [place] [address] Phone Care Team Providers Care Primer Waterproofing Machine Adjuster Name Role Phone Unavailable Primary Care Provider Unavailabl e Encounter Details Date Type Department Care Team (Late st Contact Info) Description 02/22/2015 Documentation [facility] [place] [address] [place] [address] Family Medicine, Physician [facility] [place] [address] Social History Tobacco Use Types [...]
--- OUTSIDE RECORDS SUMMARY | 2025-02-21 17:03 | XMS_ITS | Encounter Summary ---
Author Organization [facility] Address [address] [place], [place] [address] Phone Care Team Providers Care Machinist/Machine Builder Name Role Phone Unavailable Primary Care Provider Unavailabl e Encounter Details Date Type Department Care Team (Late st Contact Info) Description 02/22/2014 Documentation [facility] [place] [address] [place] [address] Family Medicine, Physician [facility] [place] [address] Social History Tobacco Use Types [...]
--- OUTSIDE RECORDS SUMMARY | 2025-02-21 17:03 | XMS_ITS | Encounter Summary ---
Author Organization [facility] Address [address] [place], [place] [address] Phone Care Team Providers Care Radiation Physicist Name Role Phone Unavailable Primary Care Provider Unavailabl e Encounter Details Date Type Department Care Team (Late st Contact Info) Description 12/07/2012 Documentation [facility] [place] [address] [place] [address] Family Medicine, Physician [facility] [address] Social History Tobacco Use Types [...]
--- OUTSIDE RECORDS SUMMARY | 2025-02-21 17:03 | XMS_ITS | Encounter Summary ---
Author Organization [facility] Address [address] [place], [place] [phone] Phone Care Team Providers Care Upholsterer Assembly Line Name Role Phone Unavailable Primary Care Provider Unavailabl e Encounter Details Date Type Department Care Team (Late st Contact Info) Description 02/22/2014 [place] [facility] [place] [address] [place] [address] Family Medicine, Physician [facility] [place] [address] Social History Tobacco Use Types [...]
--- OUTSIDE RECORDS SUMMARY | 2025-02-21 17:03 | XMS_ITS | Encounter Summary ---
Author Organization [facility] Address [address] [place], [place] [address] Phone Care Team Providers Care Lead Embedded Software Engineer Name Role Phone Unavailable Primary Care Provider Unavailabl e Encounter Details Date Type Department Care Team (Late st Contact Info) Description 11/27/2010 Documentation [facility] [place] [address] [place] [address] Family Medicine, Physician [facility] [place] [address] Social History Tobacco Use Types [...]
--- OUTSIDE RECORDS SUMMARY | 2025-02-21 17:03 | XMS_ITS | Encounter Summary ---
Author Organization [facility] Address [address] [place], [place] [address] Phone Care Team Providers Care Filler Shaker Name Role Phone Unavailable Primary Care Provider Unavailabl e Encounter Details Date Type Department Care Team (Late st Contact Info) Description 02/22/2015 Documentation [facility] [place] [address] [place] [address] Family Medicine, Physician [facility] [address] Social History Tobacco Use Types [...]
--- OUTSIDE RECORDS SUMMARY | 2025-02-21 17:03 | XMS_ITS | Encounter Summary ---
Author Organization [facility] Address [address] [place], [place] [address] Phone Care Team Providers Care Commercial Lines Underwriter Name Role Phone Unavailable Primary Care Provider Unavailabl e Encounter Details Date Type Department Care Team (Late st Contact Info) Description 12/07/2012 Documentation [facility] [place] [address] [place] [address] Family Medicine, Physician [facility] [place] [address] Social History Tobacco Use Types [...]
--- OUTSIDE RECORDS SUMMARY | 2025-02-21 17:03 | XMS_ITS | Encounter Summary ---
Author Organization [facility] Address [address] [place], [place] [address] Phone Care Team Providers Care Briquette Machine Operator Name Role Phone Unavailable Primary Care Provider Unavailabl e Encounter Details Date Type Department Care Team (Late st Contact Info) Description 11/27/2010 Documentation [facility] [place] [address] [place] [address] Family Medicine, Physician [facility] [place] [address] Social History Tobacco Use Types [...]
--- OUTSIDE RECORDS SUMMARY | 2025-02-21 17:03 | XMS_ITS | Encounter Summary ---
Author Organization [facility] Address [address] [place], [place] [address] Phone Care Team Providers Care Evening Anchor Name Role Phone Unavailable Primary Care Provider Unavailabl e Encounter Details Date Type Department Care Team (Late st Contact Info) Description 01/07/2012 Documentation [facility] [place] [address] [place] [address] Family Medicine, Physician [facility] [place] [address] Social History Tobacco Use Types [...]
--- OUTSIDE RECORDS SUMMARY | 2025-02-21 17:04 | XMS_ITS | Patient Health Record ---
Author Organization [facility] Address [address] [place] [address] Care Team Providers Care Coil Winding Machines Set Up Mechanic Name Role Phone Carlie BENAVIDEZ, Erika Primary Care Provider Unav ailable Tim Vargas Unavailable [phone] Reason For Referral No Information Social History Tobacco Use: Social History Observation Description Date Details (start date - stop date) Never Smoker NA - NA Tobacco Use/Smoking Question Answer Notes Are you a: nonsmoker Additional Findings: Tobacco Non-User Current no n-smoker Alcohol Screen Question Answer Notes Did you have a drink containing alcohol in the p ast year? No Points 0 Interpretation Negative Tobacco use other than smoking: Question Answer Notes Are you an other tobacco user? No Plan Of Treatment No Information Insurance Providers Payer Name Payer Address Payer Phone Subscriber Number Group Number Insured Name Patient Relationship to Insured Coverage Start Date Coverage End Date [facility] [address] [place] [address] [id number] Edmar Zapien Self - patient is the insured Medical (General) History Medical History History ICD Code Chicken pox Auditory Processing Disorder Asperger's syndrome Tactile issues
[2025-02-21 17:07] LABS: Alanine Aminotransferase 25 U/L (0-40); Albumin Level 5.4 g/dL (3.5-5.0); Alkaline Phosphatase 73 U/L (39-117); Anion Gap 14 (12-20); Aspartate Amino Transferase 21 U/L (5-37); Blood Urea Nitrogen 15 mg/dL (9-16); Calcium 9.9 mg/dL (8.4-10.2); Carbon Dioxide 27 mmol/L (22-29); Chloride 104 mmol/L (96-108); Estimated Glomerular Filt Rate > 60; Potassium 4.2 mmol/L (3.3-5.1); Sodium 141 mmol/L (135-145); Total Protein 7.8 g/dL (6.5-8.0)
== END 2025-02-21 15:24 | disposition home or self-care (01) ==
LOC: HO.LAB 15:23
PROVIDERS: PCP Internal Medicine Medical Oncology; Visit Provider Internal Medicine Medical Oncology
DX: F41.1 Generalized anxiety disorder (principal); F40.10 Social phobia, unspecified; F84.5 Asperger's syndrome; R35.0 Frequency of micturition
CPT/HCPCS: 36415; 80053; 81003; 85025; 85652